=== PATIENT | male | born 1960 | race Two or more races ===

== ENCOUNTER 2017-08-13 09:08 | Emergency (ER) | payer OTHER ==
[~2017-08-13] VITALS: Ht 177.8 cm; Wt 90.7 kg
[2017-08-13 09:17] VITALS: BP 196/100
[2017-08-13] MEDS ORDERED: METH4TAB2 PO (09:36)
--- NOTE | 2017-08-13 09:37 | PHYS DOC ---
Past Medical History Past Medical History: No Pertinent History Past Surgical History: Other Additional Past Surgical Histo: ABSCESS SX Alcohol Use: Occasionally Drug Use: None Adult General Chief Complaint Chief Complaint: HIP PAIN HPI HPI Patient is a 57 year old male who presents with tenderness to his sciatic joint that is radiating down his buttocks and into his leg. He is been seen at two urgent care centers and has taken muscle relaxants, and Naprosyn with little relief. He states that he did get a steroid injection at one of the urgent cares which helped for a few days but then the pain returned. He was given a prescription for Lortab as well, but he says this is not relieving the pain. He denies spontaneous loss of bowel or bladder or foot drop. He states that the initial injury occurred when he was climbing up and down a ladder doing siding. He felt a twinge around his hip and then the sciatic nerve became very painful. This is been going on for approximately 2 weeks total. Review of Systems Review of Systems Constitutional: Denies fever or chills [] Respiratory: Denies cough or shortness of breath [] Cardiovascular: No additional information not addressed in HPI [] GI: Denies abdominal pain, nausea, vomiting, bloody stools or diarrhea [] : Denies dysuria or hematuria [] Musculoskeletal: See history of present illness Integument: Denies rash or skin lesions [] Neurologic: Denies headache, focal weakness or sensory changes [] Endocrine: Denies polyuria or polydipsia [] All other systems were reviewed and found to be within normal limits, except as documented in this note. Allergies Allergies Allergies Coded Allergies Type Severity Reaction Last Updated Verified No Known Drug Allergies 08/13/17 No Physical Exam Physical Exam Constitutional: Well developed, well nourished, no acute distress, non-toxic appearance. [] Neck: Normal range of motion, no tenderness, supple, no stridor. [] Cardiovascular:Heart rate regular rhythm, no murmur [] Lungs & Thorax: Bilateral breath sounds clear to auscultation [] Abdomen: Bowel sounds normal, soft, no tenderness, no masses, no pulsatile masses. [] Skin: Warm, dry, no erythema, no rash. [] Back: No tenderness, no CVA tenderness. [] Extremities: Tenderness to the right SI joint with pain radiating down the buttock and into the left thigh, no foot drop noted, pulses and sensation are intact distal to injury Neurologic: Alert and oriented X 3, normal motor function, normal sensory function, no focal deficits noted. [] Psychologic: Affect normal, judgement normal, mood normal. [] Current Patient Data Vital Signs Vital Signs Date Time Temp Pulse Resp B/P (MAP) Pulse Ox O2 Delivery O2 Flow Rate FiO2 08/13/17 09:17 97.5 77 18 98 Room Air 97.5 EKG EKG [] Radiology/Procedures Radiology/Procedures [] Course & Med Decision Making Course & Med Decision Making Pertinent Labs and Imaging studies reviewed. (See chart for details) []1. Sciatica Mode been prescribed a Medrol Dosepak. Please take medication as directed on the package. If any of the warning symptoms occur please return to the ED immediately. If this does not resolve your pain please follow-up with your primary care provider for further evaluation and possible joint injection. Dragon Disclaimer Dragon Disclaimer This electronic medical record was generated, in whole or in part, using a voice recognition dictation system. Departure Departure Impression: Primary Impression: Sciatica Disposition: 01 HOME, SELF-CARE Condition: STABLE Patient Instructions: Sciatica Additional Instructions: Follow-up with your primary care provider in one week if not resolved. Please take the medication as prescribed. Scripts Methylprednisolone (MEDROL) 4 Mg Tab.ds.pk 1 PKG PO UD, #1 PKG Prov: FELICITA CHAVEZ APRN 08/13/17 FELICITA CHAVEZ APRN Aug 13, 2017 09:37
== END 2017-08-13 09:40 | disposition home or self-care (01) ==
LOC: ER 09:08
DX: M54.31 Sciatica, right side (principal)
CPT/HCPCS: 99283